=== PATIENT | female | born 1975 | race Caucasian/White ===

== ENCOUNTER 2024-01-29 00:11 | Emergency (ER) | payer BC, SELFPAY ==
[2024-01-29 00:33] VITALS: BP 152/78
--- NOTE | 2024-01-29 00:43 | ED.GENMED ---
History of Present Illness
General
Chief Complaint: Flank Pain
Source: patient
Exam Limitations: none
Time Seen by Provider: 01/29/24 00:17
History of Present Illness
History of Present Illness:
This is a 48 year old female that comes in with c/o right flank pain. States that year ago she had a cyst on the right ovary that pushed on the ureter and cause her to have a UTI. State that tonight about 3 hours ago she started with right flank
pain. States that this is a severe stabbing pain that comes and goes. States that she has pelvic pain and pressure in the bladder. State that she also has urinary burning. States that she has a headache but states that she did not sleep well
yesterday. Denies any fever, chills, chest pain, SOB, nausea, vomiting, diarrhea, dizziness, urinary burning.
Past History
Past History
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
ED Past Surgical History: Gynecological (Bilateral oophorectomy)
Social History
Tobacco: Non-smoker
Alcohol: Occasional
Personal: Single
Living: with family
Employment: Employed
Review of Systems
Review of Systems
All Other Systems: ROS reviewed and negative except as documented in HPI and ROS
Constitutional: Reports no symptoms; Denies fever or chills
EENT: Reports no symptoms
Respiratory: Reports no symptoms; Denies cough or trouble breathing
Cardiac: Reports no symptoms; Denies chest pain
ABD/GI: Reports abdominal pain (right flank pain); Denies nausea, vomiting or diarrhea
: Reports dysuria and flank pain (Right flank pain); Denies frequency
Musculoskeletal: Reports no symptoms
Skin: Reports no symptoms
Neurological: Reports headache; Denies dizzy
Psychiatric: Reports no symptoms
Phy Exam
General Physical Exam
General Presentation: well appearing and no apparent distress
General age: appears stated age
General Skin: warm and dry
General Habitus: normal
General Mental: alert
General Hydration: appears well hydrated
ENT Exam
ENT Exam: TM's normal, pharynx normal and neck supple
Eye Exam
Eye Exam: EOMI
Cardiovascular Exam
Cardiovascular Exam: regular rate/rhythm, no edema, no murmur and normal peripheral pulses
Pulmonary Exam
Pulmonary Exam: lungs clear, no respiratory distress, no rales, chest non tender, no crackles and no rhonchi
Gastrointestinal Exam
Gastrointestinal Exam: normal bowel sounds, non tender, soft, no organomegaly, no pulsatile mass, non distended, no cva tenderness and other (Obese)
Musculoskeletal Exam
Musculoskeletal Exam: full ROM and no edema
Skin Exam
Skin Exam: normal color, warm/dry, no rash and no petechia
Psychiatric Exam
Psychiatric Exam: normal mood/affect
Course
Orders/Labs/Results
Orders:
Orders
01/29/24 00:43
CT Abd/pel Without Iv Or Oral Urgent
Comment:
Reason For Exam: right flank pain
01/29/24 00:48
Ketorolac [Toradol] 30 mg IV NOW STA
01/29/24 00:59
Complete Blood Count/With Diff Urgent
Comprehensive Metabolic Panel Urgent
Urinalysis Reflex To Culture Urgent
Date Specimen was Collected: 01/29/24
Time Specimen was Collected: 00:48
Urine Microscopic Reflex Cult Urgent
Urine Culture Urgent
DEEPAK Source: U
Specimen Description:
Date Specimen was Collected: 01/29/24
Time Specimen was Collected: 00:48
Abnormal Lab Results
01/29/24
00:59
MCV 74.7 L fL
(81.0-99.0)
MCH 24.9 L pg
(27.0-31.0)
RDW 15.0 H %
(11.5-14.5)
Absolute Monos (auto) 1.0 H 10^3/uL
(0.1-0.6)
Monocytes % 10.2 H %
(1.7-9.3)
Potassium 3.4 L mmol/L
(3.5-5.1)
Glucose 134 H mg/dl
(70-99)
Leukocyte Esterase Rfl 2+ A
(Negative)
Urine WBC (Reflex) 21-25 A /HPF
(0-5)
Urine Bacteria (Reflex) Many A
(Negative)
01/29/24 00:59
01/29/24 00:59
Anemia, Glucose nonfasting. Urine contaminated but Concern for Pyelonephritis will treat
Vital Signs
Initial and Last Documented VS:
Initial Vital Signs
Temp Pulse Resp BP Pulse Ox
98.5 F 85 18 152/78 97
01/29/24 00:33 01/29/24 00:33 01/29/24 00:33 01/29/24 00:33 01/29/24 00:33
Last Documented Vital Signs
Temp Pulse Resp BP Pulse Ox
98.5 F 85 18 152/78 97
01/29/24 00:33 01/29/24 00:33 01/29/24 00:33 01/29/24 00:33 01/29/24 00:33
MDM/Problems Addressed
Differential Diagnosis Includes:
renal calculus, flank due to back pain
MDM/Problems Addressed:
This is a 48 year old female that comes in with c/o right flank pain. States that this started 3 hours ago and that is is a stabbing pain that comes and goes.
Will get labs, Urine and CT scan.
Back into see patient. Explained that her blood work is normal but her Urine is questionable for infection but with pain in the flank are concern for Pyelonephritis. Will treat with Rocephin and place on Cefdinir. Will discharge.
Chronic conditions affecting care:
NA
Acute Exacerbation and/or Progression of Chronic Illness:
NA
*Radiology
Radiology exam reviewed: radiology read reviewed (CT night hawk-Gallbladder is distended but no surrounding inflammatory changes or stones; although CT has a decreased sensitivity for noncalcified gallstones. Please clinically correlate and consider
ultrasound if clinically indicated. Normal appendix. No renal or obstructing ureteral stones. ) and all reviewed NAD by ED Provider (Ct cont- No hydronephrosis or hydroureter. Bowel is without evidence of obstruction. No adnexal masses or
significant free fluid. IUD in the uterus appears appropriately located. Lack of intravenous contrast diminishes evaluation of the visceral organs. )
*Pulse Oximetry
Patient hypoxic: no
*EKG
Interpreted by ED Provider?: NA
Rate: EKG- N/A
*Qa Analyst Interpretation
Rate: Qa Analyst- N/A
*Critical Care Note
Total Time (30-74mins, 75-104mins- exclusive of procedures): Not Applicable
ED Attending Note
-
Portions of this chart may have been created with voice recognition software.� Occasional wrong word or��sound alike� substitutions may have occurred due to the inherent limitations of voice recognition software.
Discharge Plan
Departure
Patient Disposition: Home (Routine Discharge)
Date of Disposition: 01/29/24
Time of Disposition: 02:58
Patient with high blood pressure during this ER visit?: Yes
Condition: Good
Covid-19: Not Applicable
Discharge Problem:
Urinary tract infection Vs Pyelonephriti
Instructions: Urinary Tract Infection, Adult ED, BLOOD PRESSURE
Prescriptions:
New
levofloxacin 500 mg tablet
500 mg PO DAILY 7 Days Qty: 7 0RF
Referrals:
Bharathi Fair MD [Family Provider] - Call in 1-3 days for appt
Activity Restrictions/Additional Instructions:
As discussed, your blood work is normal.Your CT is negative for any acute process. Your urine is concerning for infection. With your flank pain this may be a kidney infection. You have been given IV antibiotic here and a prescription has been sent
to your pharmacy for the next 7 day. Please increase your water intake to 8-8oz glasses daily. Follow up with the family doctor for repeat urine after you are off the antibiotics. IF YOU HAVE ANY FEVER, INCREASED OR CHANGING PAIN, OR YOU HAVE ANY
OTHER CONCERNS PLEASE RETURN TO THE EMERGENCY ROOM.
Interventions
Interventions:
*General Assessment Last Done: 01/29/24 00:33
ST-Ghykpa-Jpkdiabjam Assessment Last Done: 01/29/24 01:14
ED-Female Genitourinary Assessment Last Done: 01/29/24 01:14
Discharge Date and Time
Print Language: [id number]
[2024-01-29] MEDS: TORADOL 30 MG IV (01:01)
[2024-01-29 01:08] LABS: Urine Albumin Negative (Neg - Trace); Urine Bilirubin Negative (Negative); Urine Character Clear (Clear); Urine Glucose Negative (Negative); Urine Ketone Negative (Negative); Urine Leukocyte 2+ (Negative); Urine Nitrite Negative (Negative); Urine Occult Blood Negative (Negative); Urine Urobilinogen Negative (Neg - 1+)
[2024-01-29 01:14] LABS: % Basophils 0.8 % (0-2); % Eosinophils 3.3 % (0-6); % Immature Granulocytes 0.3 % (0-0.5); % Lymphocytes 27.9 % (20.5-51.1); % Monocytes 10.2 % (1.7-9.3); % Neutrophils 57.5 % (42.2-75.2); Absolute Basophils 0.1 10^3/uL (0-0.2); Absolute Eosinophils 0.3 10^3/uL (0-0.7); Absolute Lymphocytes 2.8 10^3/uL (1.2-3.4); Absolute Neutrophils 5.7 10^3/uL (1.4-6.5); Hematocrit 39.3 % (37.0-47.0); Hemoglobin 13.1 g/dL (12.0-16.0); Mean Corp Hgb Conc. 33.3 g/dL (33.0-37.0); Mean Corpuscular Hgb 24.9 pg (27.0-31.0); Mean Corpuscular Volume 74.7 fL (81.0-99.0); Mean Platelet Volume 9.7 fL (7.4-10.4); Nucleated Red Blood Cells % 0 %; Platelet Count 282 10^3/uL (130-400); Red Blood Cell Count 5.26 10^6/uL (4.20-5.40); White Blood Cell Count 9.9 10^3/uL (4.8-10.8)
[2024-01-29 01:27] LABS: Urine Color Yellow
[2024-01-29 01:32] LABS: ALT (SGPT) 25 U/L (0-35); AST (SGOT) 34 U/L (14-36); Albumin 4.4 g/dl (3.5-5.0); Alkaline Phosphatase 109 U/L (38-126); Blood Urea Nitrogen 10 mg/dl (7-17); Calcium 9.9 mg/dl (8.4-10.2); Carbon Dioxide 28 mmol/L (22-30); Chloride 99 mmol/L (98-107); Glucose 134 mg/dl (70-99); Potassium 3.4 mmol/L (3.5-5.1); Sodium 137 mmol/L (135-145); Total Bilirubin 0.5 mg/dl (0.2-1.3); Total Protein 7.5 g/dl (6.3-8.2); eGFR > 60.00
[2024-01-29 02:12] LABS: Urine Squamous Cell >30 /LPF (Few)
[2024-01-29 02:13] LABS: Urine Bacteria Many (Negative); Urine Red Blood Cell 0-2 /HPF (0-2)
[2024-01-29 02:14] LABS: Urine Mucus Moderate
[2024-01-29 02:15] LABS: Urine White Cell 21-25 /HPF (0-5)
[2024-01-29] MEDS: ROCEPHIN 1000 MG IV (03:02)
[2024-01-29 03:10] VITALS: BP 150/84
== END 2024-01-29 03:11 | disposition home or self-care (01) ==
LOC: EMR 00:11
PROVIDERS: Clinical Nurse Specialist Family Health; EMERGENCY PHYSICIAN Emergency Medicine; FAMILY PHYSICIAN Family Medicine
DX: R10.2 Pelvic and perineal pain (principal); R30.9 Painful micturition, unspecified; D64.9 Anemia, unspecified; I10 Essential (primary) hypertension
CPT/HCPCS: 99285; 96374; 96375; 74176; 80053; 81003; 81015; 85025; 87086

== ENCOUNTER → 2024-02-05 07:33 | Outpatient (REF) | payer BC, SELFPAY | LOC: WDC 07:33 | PROVIDERS: ATTENDING PHYSICIAN Family Medicine | DX: Z12.31 Encounter for screening mammogram for malignant neoplasm of breast (principal) | CPT/HCPCS: 77063; 77067 ==

== ENCOUNTER → 2025-02-11 07:03 | Outpatient (REF) | payer BC, SELFPAY | LOC: WDC 07:03 | PROVIDERS: ATTENDING PHYSICIAN Family Medicine | DX: Z12.31 Encounter for screening mammogram for malignant neoplasm of breast (principal) | CPT/HCPCS: 77063; 77067 ==